=== PATIENT | male | born 2000 | race Caucasian/White ===

== ENCOUNTER 2022-06-14 13:24 | Day surgery (SDC) | payer OTHER ==
[~2022-06-14] VITALS: Ht 177.8 cm; Wt 92.6 kg
[2022-06-14 13:43] VITALS: BP 131/83; PULSE 75; TEMP 98.2
[2022-06-14] MEDS ORDERED: PRIL40 PO (13:46)
[2022-06-14 15:05] VITALS: BP 113/76; PULSE 68; TEMP 97.1
[2022-06-14 15:20] VITALS: BP 117/78; PULSE 76
[2022-06-14 15:35] VITALS: BP 119/80; PULSE 71
--- NOTE | 2022-06-14 17:01 | NUR ---
1505: PATIENT TO [facility] VIA CART FROM ENDO SUITE. PATIENT REQUESTED MUFFIN AND SODA. VS STABLE. BREATHING EVEN AND UNLABORED. CALL LIGHT IN REACH. 1520: VS REMAIN STABLE. PATIENT TOLERATING SODA WELL BUT DID NOT WANT THE MUFFIN. NO CONCERNS VOICED AT THIS TIME. RESTING IN RECLINER. CALL LIGHT IN REACH. 1530: DR. CASEY IN TO SPEAK WITH PATIENT AT THIS TIME. 1535: VS REMAIN STABLE. PATIENT HAS NO CONCERNS AT THIS TIME. 1600: PATIENT RESTING IN RECLINER AT THIS TIME. NO CONCERNS NOTED. CALL LIGHT IN REACH. 1616: DISCHARGE EDUCATION COMPLETED. PATIENT STATED UNDERSTANDING OF INSTRUCTIONS. DISCHARGE PAPERWORK GIVEN TO PATIENT. IV DC'D. PATIENT DENIES ANY ASSISTANCE DRESSING AND IS CONTACTING HIS RIDE AT THIS TIME. 1645: PATIENT OFF UNIT VIA WHEELCHAIR. PATIENT DISCHARGED TO HOME WITH FRIENDS PER PERSONAL VEHICLE.
== END 2022-06-14 16:45 | disposition home or self-care (01) ==
LOC: SDCO 13:24
DX: R19.4 Change in bowel habit (principal); K29.70 Gastritis, unspecified, without bleeding; K21.00 Gastro-esophageal reflux disease with esophagitis, without bleeding; K44.9 Diaphragmatic hernia without obstruction or gangrene; K92.0 Hematemesis; R19.7 Diarrhea, unspecified; K92.1 Melena; F17.210 Nicotine dependence, cigarettes, uncomplicated; Z79.899 Other long term (current) drug therapy
CPT/HCPCS: J2704; J3010; J7120